=== PATIENT | female | born 1935 | race Caucasian/White ===

== ENCOUNTER 2020-07-29 16:08 | Emergency (ER) | payer MEDICARE, OTHER, SELFPAY ==
[2020-07-29 16:16] VITALS: BP 159/87; PULSE 67; RESP 20; TEMP 37.7; O2SAT 98
--- NOTE | 2020-07-29 16:29 | ED.SKABFB ---
HPI - Skin/Abscess/Foreign Bdy General Chief complaint: Skin/Abscess/Foreign Body Stated complaint: both feet bleeding/seeping Time Seen by Provider: 07/29/20 16:25 Source: patient and RN notes reviewed Mode of arrival: ambulatory Limitations: no limitations History of Present Illness HPI narrative: 84-year-old female presents with concern for a rash on her feet. Reports approximately 1 month history of very dry skin that weeps, occasionally bleeds. Denies any intervention for the symptoms. Denies any swelling, redness, pain, itching. Denies any similar history MD complaint: rash Related Data Home Medications Medication Instructions Recorded Confirmed clopidogrel [Plavix] 75 mg PO DAILY 07/29/20 07/29/20 furosemide [Lasix] 40 mg PO DAILY 07/29/20 07/29/20 insulin glargine [Lantus U-100 48 unit SUBCUT DAILY 07/29/20 07/29/20 Insulin] insulin lispro [Humalog Pen] 10 unit SUBCUT QAM 07/29/20 07/29/20 levothyroxine [Levoxyl] 137 mcg PO DAILY 07/29/20 07/29/20 losartan 50 mg PO DAILY 07/29/20 07/29/20 metoprolol tartrate 50 mg PO DAILY 07/29/20 07/29/20 montelukast [Singulair] 10 mg PO DAILY 07/29/20 07/29/20 rosuvastatin 40 mg PO DAILY 07/29/20 07/29/20 Allergies Allergy/AdvReac Type Severity Reaction Status Date / Time Penicillins Allergy Unknown Rash Unverified 07/29/20 16:26 pneumococcal vaccine Allergy Unknown Rash Unverified 07/29/20 16:26 Sulfa (Sulfonamide Allergy Unknown Rash Unverified 07/29/20 16:26 Antibiotics) Contrast Media Allergy Unknown Hives Uncoded 07/29/20 16:26 Review of Systems Review of Systems: Narrative: CONSTITUTIONAL: Denies malaise, chills, sweats, or fever. ENT: Denies lip swelling, tongue swelling CARDIOVASCULAR: Denies chest pain, palpitations, or edema. RESPIRATORY: Denies cough or dyspnea. SKIN: Bilateral rash, bleeding, weeping to feet MUSCULOSKELETAL: Denies myalgia. All systems reviewed & are unremarkable except as noted in HPI and below PMFSH Comments At time of signature, agree with nursing past medical, surgical, social and family history. There is no relevant family history pertinent to the presenting complaint Exam Narrative: Exam Narrative: GENERAL: Well-appearing, well-nourished, and in no acute distress. HEAD: Normocephalic EYES: PERRLA, conjunctivae clear ENT: Mucous membranes moist. NECK: Supple. CHEST: No respiratory distress. Speaks in full sentences. HEART: Regular rate and rhythm. Normal peripheral pulses. Musculoskeletal: Grossly normal range of motion, strength in bilateral feet SKIN: Warm, dry. Patches of plaque, cracked skin with scattered pinpoint blisters noted to bilateral feet, pedal aspect, scattered to dorsal aspect, between digits. NEURO: Alert and oriented x3. PSYCH: Normal mood and affect Course Course Emergency Course: Patient is aware of diagnosis, understands and agrees to treatment plan. Anticipatory guidance given. Patient agrees to follow-up as directed and is aware of reasons to seek care at the emergency department. Portions of this record may have been created with voice recognition software Vital Signs Vital signs: Vital Signs Temperature 99.9 F H 07/29/20 16:16 Pulse Rate 67 07/29/20 16:16 Respiratory Rate 20 07/29/20 16:16 Blood Pressure 159/87 H 07/29/20 16:16 Pulse Oximetry 98 07/29/20 16:16 Temperature 99.9 F H 07/29/20 16:16 Pulse Rate 67 07/29/20 16:16 Respiratory Rate 20 07/29/20 16:16 Blood Pressure 159/87 H 07/29/20 16:16 Pulse Oximetry 98 07/29/20 16:16 Reviewed. Patient has history of hypertension MDM - Skin/Abscess/Foreign Bdy MDM Narrative Medical decision making narrative: Exam findings show no acute concerns or changes; patient is non-toxic appearing and is in no distress. Patient is appropriate for outpatient treatment and follow-up. Differential Diagnosis Differential diagnosis: Likely abscess of skin or subcutaneous tissue, viral exanthem, urticaria, cellulitis, eczema a
== END 2020-07-29 16:39 | disposition home or self-care (01) ==
PROVIDERS: Emergency Provider Nurse Practitioner; PCP Internal Medicine
DX: L30.1 Dyshidrosis [pompholyx] (principal); E78.00 Pure hypercholesterolemia, unspecified; I10 Essential (primary) hypertension; I25.2 Old myocardial infarction; E11.40 Type 2 diabetes mellitus with diabetic neuropathy, unspecified; E03.9 Hypothyroidism, unspecified; Z95.5 Presence of coronary angioplasty implant and graft
CPT/HCPCS: 99213; G0463